=== PATIENT | male | born 1995 | race African-American/Black ===

== ENCOUNTER 2017-03-03 16:53 | Emergency (ER) | payer OTHER ==
[~2017-03-03] VITALS: Ht 180.3 cm; Wt 91.1 kg
[~2017-03-03 16:53] MED LIST: NOHOMEMEDS
[2017-03-03 19:13] LABS: HEMATOCRIT 45.8 % (38.0-50.0); MCH 27.8 PG (29.0-34.0); MCHC 32.8 G/DL (30.0-36.0); MEAN PLAT.VOLUME 9.9 uM^3 (9.0-12.4); PLATELET COUNT 259 K/uL (156-360); RBC DIS.WIDTH-SD 39.8 % (39-53); RED BLOOD COUNT 5.39 M/uL (4.00-5.50); WHITE BLOOD COUNT 9.2 K/uL (4.1-10.2)
[2017-03-03 19:30] LABS: CHLORIDE 104 mEq/L (99-109); POTASSIUM 4.3 mEq/L (3.7-5.4); SODIUM 141 mEq/L (136-147)
[2017-03-03 19:31] LABS: GLUCOSE 76 mg/dL (70-99)
[2017-03-03 19:33] LABS: ANION GAP 11 MEQ/L (2-14)
[2017-03-03 19:35] LABS: GFR ESTIMATE (CALCULATED) > 59 mL/min/; SERUM ETHYL ALCOHOL < 10 mg/dL
[2017-03-03 19:36] LABS: UREA NITROGEN (BUN) 13 mg/dL (9-23)
[2017-03-03 21:00] LABS: AMPHETAMINE NEGATIVE (500 ng/mL); BARBITURATES NEGATIVE (200 ng/mL); BENZODIAZEPINES NEGATIVE (150 ng/mL); COCAINE NEGATIVE (150 ng/mL); INTERNAL CONTROLS VALID? YES; METHADONE NEGATIVE (200 ng/mL); METHAMPHETAMINE NEGATIVE (500 ng/mL); OPIATES (MORPHINE) NEGATIVE (100 ng/mL); OXYCODONE NEGATIVE (100 ng/mL); PHENCYCLIDINE NEGATIVE (25 ng/mL); PROPOXYPHENE NEGATIVE (300 ng/mL); THC CANNABINOIDS NEGATIVE (50 ng/mL); TRICYCLIC ANTIDEPRESSANTS NEGATIVE (300 ng/mL)
[2017-03-03 22:26] VITALS: BP 136/79
== END 2017-03-03 22:27 | disposition home or self-care (01) ==
LOC: EME 16:53
DX: F32.9 Major depressive disorder, single episode, unspecified (principal); M79.641 Pain in right hand; J45.909 Unspecified asthma, uncomplicated
CPT/HCPCS: 73130; 80048; 85027; 90839; 99281; 99285; G0480